=== PATIENT | female | born 1985 | race Caucasian/White ===

== ENCOUNTER 2017-06-24 13:20 | Emergency (ER) | payer OTHER ==
[~2017-06-24] VITALS: Ht 175.3 cm; Wt 145.0 kg
[~2017-06-24 13:20] MED LIST: AMPH1TAB36 PO; FLUV100C PO; YAZ
[2017-06-24] MEDS ORDERED: IOHEXOL 350 MG/ML 10 ML VIAL (for RAD DIAG) IVCONTRAST ONE (13:21)
[2017-06-24 13:27] VITALS: BP 120/85; PULSE 125; RESP 16; TEMP 97.9; O2SAT 98
[2017-06-24] MEDS ORDERED: SODIUM CHLOR 0.9% 1000 ML INJ 1,000 ML IV SCH ×2 (13:43)
[2017-06-24 13:45] LABS: BLOOD, URINE NEG (NEG); GLUCOSE,URINE NEG (NEG); KETONE, URINE NEG (NEG); NITRITE,URINE NEG (NEG)
[2017-06-24] MEDS ORDERED: ADDE20 PO (13:45)
[2017-06-24] MEDS ORDERED: HYDROmorphone HCL PF 2 MG/ML VIAL IVS ONE (13:45)
[2017-06-24] MEDS ORDERED: PROZ20CA11 PO (13:45)
[2017-06-24] MEDS ORDERED: ONDANSETRON HCL 4 MG/2 ML VIAL IVP ONE (13:45)
[2017-06-24] MEDS ORDERED: CLON1 PO (13:45)
[2017-06-24] MEDS ORDERED: SODIUM CHLORIDE 0.9% FLUSH 10 ML FLUSH IV FLUSH PRN (13:45)
[2017-06-24 13:52] LABS: METHOD OF COLLECTION CLEAN CATCH; URINE COLOR YELLOW (YELLW/STRAW)
--- NOTE | 2017-06-24 13:52 | PD ---
HPI Chief Complaint: GI Complaint Time Seen by Provider: 13:36 Travel History International Travel<30 days: No Contact w/Intl Traveler<30days: No Traveled to known affect area: No History of Present Illness HPI This 31-year-old female is complaining of abdominal pain. She says that for about 2 days he's been having diarrhea. The stool is very watery. Yesterday she was having some intermittent crampy abdominal pain. She had some nausea. Last night the pain seemed to move more to the right side. She has been taking Imodium and Zofran. She has a history of gastric bypass in December 2006 she is also had a tummy tuck. She has taking Clomid about 4 months in an attempt to get . She has not taken it for the last 3 months. She has no history of kidney stone. She has noted the pain is going down her right leg in the front. She has had ovarian cysts in the past PFSH Past Medical History Blood Disorders: No Anxiety: Yes Depression: Yes Cancer: No Cardiovascular Problems: No Diabetes: No Endocrine: No GERD: Yes Glaucoma: No Genitourinary: No Hepatitis: No Hiatal Hernia: No Hypertension: No Immune Disorder: No Musculoskeletal: No Neurologic: No Psychiatric: No Reproductive: No Respiratory: Yes Sleep Apnea: Yes Thyroid Disease: No Influenza Vaccination: No ?: Not LMP: 05/2017 Past Surgical History Abdominal Surgery: Yes (GASTRIC BYPASS) AICD: No Arteriovenous Shunt: No Cardiac Surgery: No Ear Surgery: No Endocrine Surgery: No Eye Surgery: No Genitourinary Surgery: No Gynecologic Surgery: No Insulin Pump: No Joint Replacement: No Oral Surgery: Yes Pacemaker: No Thoracic Surgery: No Other Surgery: Yes ( [facility] ) Social History Alcohol Use: Yes (COUPLE TIMES PER WEEK) Tobacco Use: No Substance Use: No Allergies-Medications (Allergen,Severity, Reaction): Coded Allergies: No Known Allergies (Verified , 06/24/17) Reported Meds & Prescriptions Reported Meds & Active Scripts Active Percocet (Oxycodone-Acetaminophen) 5-325 mg Tab 1 Tab PO Q6H PRN Reported Klonopin (Clonazepam) 1 Mg Tab 1 Mg PO TID PRN Adderall (Amphetamine-Dextroamphetamine) 20 Mg Tab 20 Mg PO DAILY Avoid late evening doses. Space doses at least 4 to 6 hours if more than once/day dosing. Prozac (Fluoxetine HCl) 20 Mg Cap 60 Mg PO DAILY Review of Systems General / Constitutional: No: Fever, Chills Eyes: No: Diploplia, Blurred Vision HENT: No: Headaches, Vertigo Cardiovascular: No: Chest Pain or Discomfort Respiratory: No: Cough, Shortness of Breath Gastrointestinal: Positive: Nausea, Diarrhea, Abdominal Pain Genitourinary: No: Urgency, Frequency Musculoskeletal: No: Myalgias Skin: No Rash, No Itching Psychiatric: No: Anxiety Hematologic/Lymphatic: No: Easy Bruising Physical Exam Narrative GENERAL: Well-developed female SKIN: Focused skin assessment warm/dry. HEAD: Atraumatic. Normocephalic. EYES: Pupils equal and round. No scleral icterus. No injection or drainage. ENT: No nasal bleeding or discharge. Mucous membranes pink and moist. NECK: Trachea midline. No JVD. CARDIOVASCULAR: Regular rate and rhythm. No murmur appreciated. RESPIRATORY: No accessory muscle use. Clear to auscultation. Breath sounds equal bilaterally. GASTROINTESTINAL: Abdomen soft, there is some right lower quadrant tenderness, nondistended. Hepatic and splenic margins not palpable. She complains of pain in the inguinal area going down the leg. He does not feel any hernia at this site Pelvic: Slight white discharge. There is no pain with movement of the cervix. There is no adnexal tenderness. Uterus is not palpably enlarged MUSCULOSKELETAL: No obvious deformities. No clubbing. No cyanosis. No edema. There is no pain in palpating the thoracic or lumbar spine NEUROLOGICAL: Awake and alert. No obvious cranial nerve deficits. Motor grossly within normal limits. Normal speech. PSYCHIATRIC: Appropriate mood and affect; insight and judgment normal. Data Data Last Documented VS Vital Signs Date Time Temp Pulse Resp B/P (MAP) Pulse Ox O2 Delivery O2 Flow Rate FiO2 06/24/17 17:32 06/24/17 17:32 88 16 98 Room Air 06/24/17 13:27 97.9 Orders Orders Urinalysis - C+S If Indicated (06/24/17 13:30) Ed Urine Pregnancytest Poc (06/24/17 13:30) Complete Blood Count With Diff (06/24/17 13:43) Comprehensive Metabolic Panel (06/24/17 13:43) Lipase (06/24/17 13:43) Prothrombin Time / Inr (Pt) (06/24/17 13:43) Act Partial Throm Time (Ptt) (06/24/17 13:43) Ct Abd/Pel W Iv Contrast(Rout) (06/24/17 13:43) Iv Access Insert/Monitor (06/24/17 13:43) Ecg Monitoring (06/24/17 13:43) Oximetry (06/24/17 13:43) Hydromorphone Pf Inj (Dilaudid Pf Inj) (06/24/17 13:45) Ondansetron Inj (Zofran Inj) (06/24/17 13:45) Sodium Chlor 0.9% 1000 Ml Inj (Ns 1000 M (06/24/17 13:43) Sodium Chlor 0.9% 1000 Ml Inj (Ns 1000 M (06/24/17 13:43) Sodium Chloride 0.9% Flush (Ns Flush) (06/24/17 13:45) Urine Culture (06/24/17 13:30) Gc And Chlamydia Pcr (06/24/17 14:53) Wet Prep Profile (06/24/17 14:53) Enteric Path (Stool) (06/24/17 14:53) Giardia Antigen (Stool) (06/24/17 14:53) Potassium Chloride (Kcl) (06/24/17 17:15) Iohexol 350 Inj (Omnipaque 350 Inj) (06/24/17 13:21) Labs Laboratory Tests Test 06/24/17 13:30 06/24/17 14:05 06/24/17 14:30 06/24/17 14:50 Urine Collection Type CLEAN CATCH Urine Color YELLOW Urine Turbidity SLIGHT Urine pH 6.0 Urine Specific [place] 1.031 Urine Protein NEG mg/dL Urine Glucose (UA) NEG mg/dL Urine Ketones NEG mg/dL Urine Occult Blood NEG Urine Nitrite NEG Urine Bilirubin NEG Urine Leukocyte Esterase TRACE Urine WBC 3-5 /hpf Urine Squamous Epithelial Cells 6-8 /hpf Urine Bacteria MOD /hpf Microscopic Urinalysis Comment CULTURE INDICATED Urine Collection Time 13:30 White Blood Count 7.4 TH/MM3 Red Blood Count 4.72 MIL/MM3 Hemoglobin 14.2 GM/DL Hematocrit 43.3 % Mean Corpuscular Volume 91.8 FL Mean Corpuscular Hemoglobin 30.0 PG Mean Corpuscular Hemoglobin Concent 32.7 % Red Cell Distribution Width 13.4 % Platelet Count 273 TH/MM3 Mean Platelet Volume 8.9 FL Neutrophils (%) (Auto) 85.4 % Lymphocytes (%) (Auto) 9.4 % Monocytes (%) (Auto) 3.8 % Eosinophils (%) (Auto) 0.1 % Basophils (%) (Auto) 1.3 % Neutrophils # (Auto) 6.3 TH/MM3 Lymphocytes # (Auto) 0.7 TH/MM3 Monocytes # (Auto) 0.3 TH/MM3 Eosinophils # (Auto) 0.0 TH/MM3 Basophils # (Auto) 0.1 TH/MM3 CBC Comment DIFF FINAL Differential Comment Prothrombin Time 11.1 SEC Prothromb Time International Ratio 1.0 RATIO Activated Partial Thromboplast Time 28.7 SEC Blood Urea Nitrogen 8 MG/DL Creatinine 0.66 MG/DL Random Glucose 92 MG/DL Total Protein 6.8 GM/DL Albumin 3.0 GM/DL Calcium Level 7.6 MG/DL Alkaline Phosphatase 115 U/L Aspartate Amino Transf (AST/SGOT) 20 U/L Alanine Aminotransferase (ALT/SGPT) 23 U/L Total Bilirubin 0.8 MG/DL Sodium Level 138 MEQ/L Potassium Level 3.1 MEQ/L Chloride Level 103 MEQ/L Carbon Dioxide Level 26.4 MEQ/L Anion Gap 9 MEQ/L Estimat Glomerular Filtration Rate 105 ML/MIN Lipase 68 U/L Clue Cells (Wet Prep) NONE SEEN Vaginal Trichomonas (Wet Prep) NONE SEEN Vaginal Yeast (Wet Prep) NONE SEEN Chlamydia trachomatis DNA (PCR) NOT DETECTED Neisseria gonorrhoeae DNA (PCR) NOT DETECTED MDM Medical Decision Making Medical Screen Exam Complete: Yes Emergency Medical Condition: Yes Medical Record Reviewed: Yes Differential Diagnosis Differential includes appendicitis, gastroenteritis, ovarian cyst Narrative Course Pelvic exam is fairly benign. hgb is 14 with a white count of 7.2. CT has been ordered and result is pending at the time of my departure. Will be followed up by oncoming physician Diagnosis Primary Impression: Abdominal pain Qualified Codes: R10.31 - Right lower quadrant pain Scripts Oxycodone-Acetaminophen (Percocet) 5-325 mg Tab 1 TAB PO Q6H Y for PAIN, #10 TAB 0 Refills Prov: Major Doshi MD 06/24/17 Rajesh Cadena MD Jun 24, 2017 13:52
[2017-06-24 13:53] LABS: BACTERIA, URINE MOD /hpf; COMMENT (UR) CULTURE INDICATED; CULTURE IF INDICATED CULTURE INDICATED
[2017-06-24 14:21] LABS: APTT (PATIENT) 28.7 SEC (24.3-30.1); PROTHROMBIN TIME - PATIENT 11.1 SEC (9.8-11.6)
[2017-06-24 14:27] LABS: AUTOMATED NEUTROPHIL # 6.3 TH/MM3 (1.8-7.7); BASOPHIL # 0.1 TH/MM3 (0-0.2); BASOPHIL % 1.3 % (0.0-2.0); EOSINOPHIL % 0.1 % (0.0-4.0); HEMATOCRIT 43.3 % (35.0-46.0); LYMPH % 9.4 % (9.0-44.0); LYMPHOCYTE # 0.7 TH/MM3 (1.0-4.8); MEAN CELL VOLUME 91.8 FL (80.0-100.0); MEAN CORPUSCULAR HGB CONC 32.7 % (32.0-36.0); MONO % 3.8 % (0.0-8.0); NEUT % 85.4 % (16.0-70.0); PLATELET COUNT 273 TH/MM3 (150-450); RED BLOOD COUNT 4.72 MIL/MM3 (4.00-5.30); RED CELL DISTRIBUTION WIDTH 13.4 % (11.6-17.2); WHITE BLOOD COUNT 7.4 TH/MM3 (4.0-11.0)
[2017-06-24 14:28] LABS: HEMO FLAGS DIFF FINAL
[2017-06-24 15:07] LABS: CHLORIDE 103 MEQ/L (98-107); POTASSIUM 3.1 MEQ/L (3.5-5.1); SODIUM (NA) 138 MEQ/L (136-145)
[2017-06-24 15:12] LABS: ANION GAP 9 MEQ/L (5-15); BICARBONATE 26.4 MEQ/L (21.0-32.0); BLOOD UREA NITROGEN 8 MG/DL (7-18)
[2017-06-24 15:15] LABS: ALT (GPT) 23 U/L (10-53); AST (GOT) 20 U/L (15-37); GLOMERULAR FILTRATION RATE 105 ML/MIN (>89)
[2017-06-24 15:17] LABS: TOTAL BILIRUBIN ADULT 0.8 MG/DL (0.2-1.0)
[2017-06-24 15:18] LABS: ALKALINE PHOSPHATASE 115 U/L (45-117)
[2017-06-24 16:11] VITALS: BP 126/70; PULSE 96; RESP 16; O2SAT 98
[2017-06-24 16:12] VITALS: RESP 16; O2SAT 98
--- NOTE | 2017-06-24 16:32 | RADRPT ---
EXAM DATE/TIME: 06/24/2017 15:44 [facility] COMPARISON: No previous studies available for comparison. INDICATIONS : Abdominal pain, diarrhea. IV CONTRAST: 96 cc Omnipaque 350 (iohexol) IV ORAL CONTRAST: No oral contrast ingested. RADIATION DOSE: 24.45 CTDIvol (mGy) MEDICAL HISTORY : Gastroesophageal reflux disease. SURGICAL HISTORY : Gastric bypass. ENCOUNTER: Initial ACUITY: 2 days PAIN SCALE: 7/10 LOCATION: Right lower quadrant TECHNIQUE: Volumetric scanning of the abdomen and pelvis was performed. Using automated exposure control and ad justment of the mA and/or kV according to patient size, radiation dose was kept as low as reasonably achievable to obtain optimal diagnostic quality images. DICOM format image data is available electro nically for review and comparison. FINDINGS: LOWER LUNGS: The visualized lower lungs are clear. LIVER: Diffuse hepatic steatosis. No focal mass identified. Gallbladder is distended. No pericholecystic inf lammatory changes. SPLEEN: Normal size without lesion. PANCREAS: Within normal limits. KIDNEYS: Normal in size and shape. There is no mass, stone or hydronephrosis. ADRENAL GLANDS: Within normal limits. VASCULAR: There is no aortic aneurysm. BOWEL/MESENTERY: No evidence of bowel dilatation. No free air or free fluid. Appendix within normal limits. Postsurgic al findings at the stomach and gastroesophageal junction. ABDOMINAL WALL: Within normal limits. RETROPERITONEUM: There is no lymphadenopathy. BLADDER: No wall thickening or mass. REPRODUCTIVE: Within normal limits. INGUINAL: There is no lymphadenopathy or hernia. MUSCULOSKELETAL: Arthritic findings of the sacroiliac joints. Osteophytes and subchondral sclerosis noted. CONCLUSION: 1. Findings consistent with the history of gastric bypass. 2. Hepatic steatosis. 3. Distended gallbladder with no pericholecystic inflammatory change. 4. Appendix within normal limits. Haroon Stratton MD on June 24, 2017 at 16:26 Board Certified Radiologist. This report was verified electronically.
--- NOTE | 2017-06-24 16:58 | PD ---
Data Data Last Documented VS Vital Signs Date Time Temp Pulse Resp B/P (MAP) Pulse Ox O2 Delivery O2 Flow Rate FiO2 06/24/17 16:12 16 98 Room Air 06/24/17 16:11 96 06/24/17 13:27 97.9 Orders Orders Urinalysis - C+S If Indicated (06/24/17 13:30) Ed Urine Pregnancytest Poc (06/24/17 13:30) Complete Blood Count With Diff (06/24/17 13:43) Comprehensive Metabolic Panel (06/24/17 13:43) Lipase (06/24/17 13:43) Prothrombin Time / Inr (Pt) (06/24/17 13:43) Act Partial Throm Time (Ptt) (06/24/17 13:43) Ct Abd/Pel W Iv Contrast(Rout) (06/24/17 13:43) Iv Access Insert/Monitor (06/24/17 13:43) Ecg Monitoring (06/24/17 13:43) Oximetry (06/24/17 13:43) Hydromorphone Pf Inj (Dilaudid Pf Inj) (06/24/17 13:45) Ondansetron Inj (Zofran Inj) (06/24/17 13:45) Sodium Chlor 0.9% 1000 Ml Inj (Ns 1000 M (06/24/17 13:43) Sodium Chlor 0.9% 1000 Ml Inj (Ns 1000 M (06/24/17 13:43) Sodium Chloride 0.9% Flush (Ns Flush) (06/24/17 13:45) Urine Culture (06/24/17 13:30) Gc And Chlamydia Pcr (06/24/17 14:53) Wet Prep Profile (06/24/17 14:53) Enteric Path (Stool) (06/24/17 14:53) Giardia Antigen (Stool) (06/24/17 14:53) Potassium Chloride (Kcl) (06/24/17 17:15) Labs Laboratory Tests Test 06/24/17 13:30 06/24/17 14:05 06/24/17 14:30 06/24/17 14:50 Urine Collection Type CLEAN CATCH Urine Color YELLOW Urine Turbidity SLIGHT Urine pH 6.0 Urine Specific [place] 1.031 Urine Protein NEG mg/dL Urine Glucose (UA) NEG mg/dL Urine Ketones NEG mg/dL Urine Occult Blood NEG Urine Nitrite NEG Urine Bilirubin NEG Urine Leukocyte Esterase TRACE Urine WBC 3-5 /hpf Urine Squamous Epithelial Cells 6-8 /hpf Urine Bacteria MOD /hpf Microscopic Urinalysis Comment CULTURE INDICATED Urine Collection Time 13:30 White Blood Count 7.4 TH/MM3 Red Blood Count 4.72 MIL/MM3 Hemoglobin 14.2 GM/DL Hematocrit 43.3 % Mean Corpuscular Volume 91.8 FL Mean Corpuscular Hemoglobin 30.0 PG Mean Corpuscular Hemoglobin Concent 32.7 % Red Cell Distribution Width 13.4 % Platelet Count 273 TH/MM3 Mean Platelet Volume 8.9 FL Neutrophils (%) (Auto) 85.4 % Lymphocytes (%) (Auto) 9.4 % Monocytes (%) (Auto) 3.8 % Eosinophils (%) (Auto) 0.1 % Basophils (%) (Auto) 1.3 % Neutrophils # (Auto) 6.3 TH/MM3 Lymphocytes # (Auto) 0.7 TH/MM3 Monocytes # (Auto) 0.3 TH/MM3 Eosinophils # (Auto) 0.0 TH/MM3 Basophils # (Auto) 0.1 TH/MM3 CBC Comment DIFF FINAL Differential Comment Prothrombin Time 11.1 SEC Prothromb Time International Ratio 1.0 RATIO Activated Partial Thromboplast Time 28.7 SEC Blood Urea Nitrogen 8 MG/DL Creatinine 0.66 MG/DL Random Glucose 92 MG/DL Total Protein 6.8 GM/DL Albumin 3.0 GM/DL Calcium Level 7.6 MG/DL Alkaline Phosphatase 115 U/L Aspartate Amino Transf (AST/SGOT) 20 U/L Alanine Aminotransferase (ALT/SGPT) 23 U/L Total Bilirubin 0.8 MG/DL Sodium Level 138 MEQ/L Potassium Level 3.1 MEQ/L Chloride Level 103 MEQ/L Carbon Dioxide Level 26.4 MEQ/L Anion Gap 9 MEQ/L Estimat Glomerular Filtration Rate 105 ML/MIN Lipase 68 U/L Clue Cells (Wet Prep) NONE SEEN Vaginal Trichomonas (Wet Prep) NONE SEEN Vaginal Yeast (Wet Prep) NONE SEEN MDM Supervised Visit with DEJON: No Narrative Course The patient was initially evaluated by the previous provider and signed out to me at the beginning of my shift at approximately 4:[address] abdomen pelvis and disposition. See his note for further details. Briefly this a 31-year-old female complaining of abdominal pain. She has a history of gastric bypass in 2006. For about 2 days she has been having diarrhea. The stool is very watery. Yesterday she was having some intermittent crampy right lower quadrant abdominal pain with some nausea. She has been taking Imodium and Zofran. Initial vital signs showed a heart rate of 125 which improved to 96, blood pressure 126/70, pulse ox 98% on room air, oral temp of 97.9F. CBC shows WBC 7.4, hemoglobin 14.2, hematocrit 43.3, platelets 273, neutrophils 85%. CMP is remarkable for potassium 3.1, otherwise unremarkable. Lipase is 68. UA shows trace leukocyte esterase, 6-8 epithelial cells, moderate bacteria. This is likely contaminant. Pelvic exam performed by the previous provider was essentially unremarkable. Wet prep is negative for yeast, negative for clue cells, negative for Trichomonas. CT abdomen pelvis: CONCLUSION: 1. Findings consistent with the history of gastric bypass. 2. Hepatic steatosis. 3. Distended gallbladder with no pericholecystic inflammatory change. 4. Appendix within normal limits. Case discussed with on-call general surgeon Dr. Garcia who reviewed the patient's CT imaging. I do not believe the patient's symptoms are related to her gastric bypass, and are more likely related to her diarrhea and possibly early colitis. Potassium replaced orally. She does still have some tenderness over her right lower quadrant/suprapubic region without peritoneal signs. The rest of her abdomen is soft and nontender. The patient is a nurse. She will be discharged with strict return instructions. She verbalizes understanding and agreement with plan. Diagnosis Primary Impression: Abdominal pain Qualified Codes: R10.31 - Right lower quadrant pain Additional Impressions: Diarrhea Qualified Codes: R19.7 - Diarrhea, unspecified Hypokalemia Referrals: Primary Care Physician 3 days Additional Instruction: Follow-up with your primary care physician this week. Stay hydrated with plenty of fluids. Return to the emergency department for worsening symptoms or any other concerns. Scripts Oxycodone-Acetaminophen (Percocet) 5-325 mg Tab 1 TAB PO Q6H Y for PAIN, #10 TAB 0 Refills Prov: Major Doshi MD 06/24/17 Disposition: 01 DISCHARGE HOME Condition: Stable Majro Doshi MD Jun 24, 2017 16:58
[2017-06-24] MEDS ORDERED: POTASSIUM CHLORIDE 20 MEQ CONTROLLED RELEASE TAB PO ONE (17:15)
[2017-06-24] MEDS ORDERED: PERC5TAB12 PO (17:15)
[2017-06-24 17:32] VITALS: BP 124/75; PULSE 88; RESP 16; O2SAT 98
[2017-06-24 20:46] LABS: CHLAMYDIA PCR NOT DETECTED (NOT DETECT); NEISSERIA PCR NOT DETECTED (NOT DETECT)
== END 2017-06-24 17:33 | disposition home or self-care (01) ==
LOC: PHED 13:20
DX: R10.31 Right lower quadrant pain (principal); R19.7 Diarrhea, unspecified; E87.6 Hypokalemia; Z98.84 Bariatric surgery status
CPT/HCPCS: 74177; 80053; 81001; 83690; 84703; 85025; 85610; 85730; 87086; 87210; 87328; 87329; 87491; 87506; 87591; 96361; 96374; 96375; 99285; J1170; J2405; J7030; Q9967